=== PATIENT | female | born 1940 | race Caucasian/White ===

== ENCOUNTER 2017-09-30 21:40 | Outpatient (CLI) | payer MEDICARE | END 2017-09-30 21:41 | disposition critical access hospital (66) | LOC: EMS 21:40 | PROVIDERS: ATTEND Surgery | DX: R00.2 Palpitations (principal) | CPT/HCPCS: A0425; A0427 ==

== ENCOUNTER 2017-09-30 22:16 | Emergency (ER) | payer MEDICARE ==
[2017-09-30] MEDS ORDERED: SODIUM CHLORIDE 0.9% 1,000 ML IV ONE (22:32)
[2017-09-30] MEDS ORDERED: PROCAINAMIDE 1,000 MG in SODIUM CHLORIDE 0.9% 240 ML IV STA (22:32)
[2017-09-30 22:39] LABS: BASOPHILS # (AUTO) 0.1 10^3/uL (0.0-0.1); EOSINOPHILS # (AUTO) 0.3 10^3/uL (0.0-0.7); EOSINOPHILS % (AUTO) 4.3 %; HGB - HEMOGLOBIN 12.6 g/dL (12.0-16.0); LYMPHOCYTES # (AUTO) 2.4 10^3/uL (1.5-3.5); LYMPHOCYTES % (AUTO) 35.5 %; MEAN CORPUSCULAR HEMOGLOBIN 30.9 pg (27.0-31.0); MEAN CORPUSCULAR HGB CONC 33.6 g/dL (32.0-36.0); MEAN CORPUSCULAR VOLUME 91.8 fL (81.0-99.0); MEAN PLATELET VOLUME 7.2 fL (7.9-10.8); MONOCYTES # (AUTO) 0.5 10^3/uL (0.0-1.0); MONOCYTES % (AUTO) 7.3 %; NEUTROPHILS # (AUTO) 3.5 10^3/uL (1.5-6.6); NEUTROPHILS % (AUTO) 51.9 %; PLT - PLATELET COUNT 281 10^3/uL (130-450); RED BLOOD COUNT 4.09 10^6/uL (4.20-5.40); RED CELL DISTRIBUTION WIDTH 13.5 % (12.0-15.0); WHITE BLOOD COUNT 6.8 x10^3/uL (4.8-10.8)
[2017-09-30 22:51] LABS: ALBUMIN 4.1 g/dL (3.2-5.5); ALBUMIN/GLOBULIN RATIO 1.4 (1.0-2.2); BILIRUBIN,TOTAL 0.5 mg/dL (0.2-1.0); CALCIUM 9.3 mg/dL (8.5-10.3); CREATININE 0.8 mg/dL (0.4-1.0); MAGNESIUM 1.9 mg/dL (1.7-2.8); PHOSPHORUS 4.1 mg/dL (2.5-4.6); TOTAL PROTEIN 7.1 g/dL (6.7-8.2)
--- NOTE | 2017-09-30 23:02 | XRAY Preliminary Report ---
Exam: XR CHEST 1 VIEW X-RAY IMPRESSION: Normal single view chest. [facility] SITE ID: [id number]
--- NOTE | 2017-09-30 23:05 | XRAY Report ---
EXAM: CHEST RADIOGRAPHY EXAM DATE: 09/30/2017 10:45 PM. CLINICAL HISTORY: New onset atrial fibrillation. COMPARISON: None. TECHNIQUE: 1 view. FINDINGS: Lungs/Pleura: No focal opacities evident. No pleural effusion. No pneumothorax. Mediastinum: Within exam limitations, the cardiomediastinal contour is normal. Other: None. IMPRESSION: Normal single view chest. [facility] Referring Provider Line: [phone] SITE ID: [id number]
--- NOTE | 2017-10-01 00:03 | ED Physician Documentation ---
PD HPI CHEST PAIN - Stated complaint Stated Complaint: PALPITATIONS ON/OFF X 2 MONTHS - Chief complaint Chief Complaint: Cardiac - History obtained from History obtained from: Patient, Family - History of Present Illness Timing - onset: How many hours ago (2) Timing - onset during: Rest, Emotional event Timing - details: Abrupt onset, Still present Associated symptoms: Palpitations Similar symptoms before: Work up / diagnostics Recently seen: Not recently seen - Additional information Additional information: Patient is a 77 year old female presenting to the emergency department for palpitations. According to patient and patient had an emotionally upsetting conversation with her son. Patient developed palpitations that did not resolve. patient states that she does get intermittent palpitations but she has never been medicated for them. patient states that she had a few episodes this month. Review of Systems Constitutional: denies: Fever, Chills Eyes: reports: Reviewed and negative Ears: reports: Reviewed and negative Nose: reports: Reviewed and negative Throat: denies: Sore throat Cardiac: reports: Palpitations. denies: Chest pain / pressure, Pedal edema, Calf pain Respiratory: denies: Dyspnea, Cough, Wheezing GI: denies: Nausea, Vomiting : reports: Reviewed and negative Skin: denies: Rash, Lesions Musculoskeletal: denies: Extremity pain, Extremity swelling Neurologic: denies: Generalized weakness, Focal weakness, Numbness, Near syncope , Syncope, Headache Psychiatric: denies: Depressed, Suicidal Immunocompromised: denies: Immunocompromised PD PAST MEDICAL HISTORY - Past Medical History Past Medical History: Yes Cardiovascular: Other Other Past Medical History: RBB - Past Surgical History Past Surgical History: Yes HEENT: Cataracts - Present Medications Home Medications: Ambulatory Orders Medication Instructions Recorded Confirmed Estrogens, Conjugated [Premarin] 1 tab PO DAILY 09/30/17 09/30/17 - Allergies Allergies/Adverse Reactions: Allergies Allergy/AdvReac Type Severity Reaction Status Date / Time No Known Drug Allergies Allergy Verified 09/30/17 22:31 - Social History Does the pt smoke?: No Smoking Status: Never smoker Does the pt drink ETOH?: Yes ETOH Use: Wine Does the pt have substance abuse?: No - Immunizations Immunizations are current?: Yes - POLST Patient has POLST: No PD ED PE NORMAL - Vitals Vital signs reviewed: Yes - General General: Alert and oriented X 3, Well developed/nourished - HEENT HEENT: Atraumatic, PERRL - Neck Neck: Supple, no meningeal sign, No JVD - Respiratory Respiratory: No respiratory distress, Clear bilaterally - Abdomen Abdomen: Soft, Non tender, Non distended - Derm Derm: Normal color, Warm and dry, No rash - Extremities Extremities: No deformity, No edema, No calf tenderness / cord - Neuro Neuro: Alert and oriented X 3, No motor deficit, No sensory deficit, Normal speech Eye Opening: Spontaneous Motor: Obeys Commands Verbal: Oriented GCS Score: 15 PD ED PE EXPANDED - General General: Alert, Anxious - HEENT HEENT: Dry mucous membranes - Cardiac Cardiac: Tachy, Irregularly irregular Results - Vitals Vitals: Vital Signs - 24 hr 09/30/17 09/30/17 09/30/17 22:20 22:45 22:59 Temperature 35.9 C L Heart Rate 126 H 109 H 113 H Respiratory 17 10 L 18 Rate Blood Pressure 164/91 H 156/80 H 141/97 H O2 Saturation 97 96 98 09/30/17 09/30/17 10/01/17 23:22 23:45 00:07 Temperature 36.0 C L Heart Rate 130 H 84 85 Respiratory 23 17 17 Rate Blood Pressure 144/101 H 135/97 H 135/88 H O2 Saturation 97 97 97 Oxygen O2 Source Room air Oxygen Flow Rate 2 - EKG (time done) 2222 Rate: Rate (enter#) (110) Rhythm: Atrial fibrillation Intervals: RBBB Ischemia: Normal ST segments Compare to prior EKG: Old EKG unavailable Computer interpretation: Disagree with computer 2258 Rate: Rate (enter#) (108) Rhythm: Atrial fibrillation Intervals: RBBB Other comments: Other comments (posterior ekg, no signs of acute ischemia) Compare to prior EKG: Unchanged from prior EKG 2356 Rate: Rate (enter#) (83) Rhythm: NSR [place]: Normal Intervals: RBBB QRS: Normal Ischemia: Normal ST segments Compare to prior EKG: Changed from prior EKG - Labs Labs: Laboratory Tests 09/30/17 09/30/17 09/30/17 22:33 22:33 22:33 WBC 6.8 RBC 4.09 L Hgb 12.6 Hct 37.5 MCV 91.8 MCH 30.9 MCHC 33.6 RDW 13.5 Plt Count 281 MPV 7.2 L Neut # 3.5 Lymph # 2.4 [place] # 0.5 Eos # 0.3 Baso # 0.1 Absolute Nucleated RBC 0.00 Nucleated RBC % 0.1 Sodium 137 Potassium 3.4 L Chloride 102 Carbon Dioxide 25 Anion Gap 10.0 BUN 18 Creatinine 0.8 Estimated GFR (MDRD) 70 L Glucose 120 H Calcium 9.3 Phosphorus 4.1 Magnesium 1.9 Total Bilirubin 0.5 AST 29 ALT 27 Alkaline Phosphatase 44 Troponin I < 0.04 B-Natriuretic Peptide Total Protein 7.1 Albumin 4.1 Globulin 3.0 Albumin/Globulin Ratio 1.4 Lipase 28 TSH 09/30/17 09/30/17 22:33 22:33 WBC RBC Hgb Hct MCV MCH MCHC RDW Plt Count MPV Neut # Lymph # [place] # Eos # Baso # Absolute Nucleated RBC Nucleated RBC % Sodium Potassium Chloride Carbon Dioxide Anion Gap BUN Creatinine Estimated GFR (MDRD) Glucose Calcium Phosphorus Magnesium Total Bilirubin AST ALT Alkaline Phosphatase Troponin I B-Natriuretic Peptide 104 H Total Protein Albumin Globulin Albumin/Globulin Ratio Lipase TSH 1.28 - Rads (name of study) chest x-ray Radiology: Final report received (normal ) PD MEDICAL DECISION MAKING - ED course Complexity details: reviewed old records, reviewed results, re-evaluated patient , considered differential, d/w patient, d/w family ED course: Patient was seen and examined at bedside. ekg was performed and showed a fib. patient was placed on a monitor. IV access was gained and labs were drawn. The computer read the ekg as a posterior CT but was not convincing. posterior ekg was performed and showed no ischemic changes. Due to patient's history of possible intermittent Afib, a decision was made to try to chemically cardiovert as opposed to electrocardioversion. Patient was stared on a fluid bolus and then treated with 1gm of procainamide over 1 hour. Patient converted into normal sinus rhythm. Patient's other diagnostics were within normal limits. and patient required no further work up at this time. Patient was stable for discharge with outpatient follow up. Departure - Departure Disposition: 01 Home, Self Care Clinical Impression: Atrial fibrillation Condition: Good Instructions: Atrial Fibrillation Dc Follow-Up: Luz Maria Aviles ARNP [Primary Care Provider] - Within 3 Days Comments: Your symptoms today were caused by a fib which has resolved. Since you have had recurrent episodes you should follow up with your doctor for an echocardiogram and holter monitor. You should avoid stimulants. You may return to the emergency department at any time for new, worsening or uncontrollable symptoms. Discharge Date/Time: 10/01/17 00:15
[2017-10-01 00:08] VITALS: BP 135/88
== END 2017-10-01 00:15 | disposition home or self-care (01) ==
LOC: EDUNIT# → ED 22:16
DX: I48.91 Unspecified atrial fibrillation (principal); I45.10 Unspecified right bundle-branch block
CPT/HCPCS: 36415; 71045; 80053; 83690; 83735; 83880; 84100; 84443; 84484; 85025; 93005; 96365; 99284; 99285; J2690

== ENCOUNTER 2017-10-31 12:37 | Outpatient (CLI) | payer MEDICARE | END 2017-10-31 12:38 | disposition home or self-care (01) | LOC: DI 12:37 | PROVIDERS: ATTEND Registered Nurse | DX: I48.0 Paroxysmal atrial fibrillation (principal); I51.7 Cardiomegaly | CPT/HCPCS: 93306 ==

== ENCOUNTER 2018-04-11 19:10 | Emergency (ER) | payer MEDICARE ==
[2018-04-11 19:53] LABS: BASOPHILS # (AUTO) 0.1 10^3/uL (0.0-0.1); BASOPHILS % (AUTO) 1.2 %; EOSINOPHILS # (AUTO) 0.1 10^3/uL (0.0-0.7); EOSINOPHILS % (AUTO) 1.1 %; HGB - HEMOGLOBIN 12.8 g/dL (12.0-16.0); LYMPHOCYTES # (AUTO) 2.3 10^3/uL (1.5-3.5); MEAN CORPUSCULAR HEMOGLOBIN 32.6 pg (27.0-31.0); MEAN CORPUSCULAR HGB CONC 34.9 g/dL (32.0-36.0); MEAN CORPUSCULAR VOLUME 93.4 fL (81.0-99.0); MEAN PLATELET VOLUME 7.9 fL (7.9-10.8); MONOCYTES # (AUTO) 0.4 10^3/uL (0.0-1.0); MONOCYTES % (AUTO) 5.9 %; NEUTROPHILS # (AUTO) 4.6 10^3/uL (1.5-6.6); NEUTROPHILS % (AUTO) 60.8 %; PLT - PLATELET COUNT 268 10^3/uL (130-450); RED BLOOD COUNT 3.94 10^6/uL (4.20-5.40); RED CELL DISTRIBUTION WIDTH 14.1 % (12.0-15.0); WHITE BLOOD COUNT 7.5 x10^3/uL (4.8-10.8)
[2018-04-11 20:06] LABS: ALBUMIN 3.9 g/dL (3.2-5.5); ALBUMIN/GLOBULIN RATIO 1.4 (1.0-2.2); BILIRUBIN,TOTAL 0.4 mg/dL (0.2-1.0); CALCIUM 9.1 mg/dL (8.5-10.3); CREATININE 0.8 mg/dL (0.4-1.0); TOTAL PROTEIN 6.7 g/dL (6.7-8.2)
--- NOTE | 2018-04-11 20:19 | XRAY Report ---
Reason: soa Procedure Date: 04/11/2018 Accession Number: [id number] / [id number] Procedure: XR - Chest 1 View X-Ray CPT Code: 86787 FULL RESULT: EXAM: CHEST RADIOGRAPHY EXAM DATE: 04/11/2018 07:59 PM. CLINICAL HISTORY: Shortness of breath COMPARISON: CHEST 1 VIEW 09/30/2017 10:36 PM. TECHNIQUE: 1 view. FINDINGS: Lungs/Pleura: Hypoventilatory changes at the lung bases. There are small bilateral pleural effusions. No pulmonary edema. No lobar consolidation or pneumothorax. Mediastinum: Within exam limitations, the cardiomediastinal contour is normal. Other: None. IMPRESSION: Trace bilateral pleural effusions. No pulmonary edema or focal consolidation. [facility]
[2018-04-11] MEDS ORDERED: LORazepam 2 MG/ML VIAL IVP STA (20:48)
[2018-04-11] MEDS ORDERED: SODIUM CHLORIDE 0.9% 1,000 ML IV ONE (20:48)
[2018-04-11] MEDS ORDERED: diltiaZEM INJ 5 MG/ML VIAL IVP STA (20:48)
--- NOTE | 2018-04-11 22:34 | ED Physician Documentation ---
History of Present Illness - Stated complaint Stated Complaint: SOA - Chief complaint Chief Complaint: Cardiac - History obtained from History obtained from: Patient, Family - History of Present Illness Timing: Yesterday - Additonal information Additional information: Patient is a 78 year old female recently diagnosed with A fib who is presenting to the emergency department for not feeling well. Patient states that she did bowel prep on friday for colonoscopy on . Patient reports that on friday she started eliquis and atenolol for her a fib. Patient states that she had some nausea and an episode of vomiting. Patient states that she came in today because she generally was not feeling well and thought it might be the medications. Review of Systems Constitutional: denies: Fever, Chills Cardiac: denies: Chest pain / pressure, Pedal edema Respiratory: denies: Dyspnea, Cough GI: reports: Nausea, Vomiting, Diarrhea. denies: Abdominal Pain : denies: Dysuria, Frequency Skin: denies: Rash, Lesions Neurologic: reports: Generalized weakness. denies: Focal weakness, Numbness, Altered mental status, LOC PD PAST MEDICAL HISTORY - Past Medical History Cardiovascular: Atrial fibrillation, Other Other Past Medical History: cervical cancer - Past Surgical History Past Surgical History: Yes HEENT: Cataracts - Present Medications Home Medications: Ambulatory Orders Medication Instructions Recorded Confirmed Estrogens, Conjugated [Premarin] 1 tab PO DAILY 09/30/17 09/30/17 diltiaZEM CD [Cardizem Cd] 180 mg PO DAILY #14 capsule 04/11/18 - Allergies Allergies/Adverse Reactions: Allergies Allergy/AdvReac Type Severity Reaction Status Date / Time No Known Drug Allergies Allergy Verified 09/30/17 22:31 - Social History Does the pt smoke?: No Smoking Status: Never smoker Does the pt drink ETOH?: Yes Does the pt have substance abuse?: No - Immunizations Immunizations are current?: Yes - POLST Patient has POLST: No PD ED PE NORMAL - Vitals Vital signs reviewed: Yes - General General: Alert and oriented X 3 - HEENT HEENT: Atraumatic - Neck Neck: Supple, no meningeal sign - Respiratory Respiratory: No respiratory distress - Abdomen Abdomen: Soft - Derm Derm: Normal color, Warm and dry - Extremities Extremities: No deformity - Neuro Neuro: Alert and oriented X 3, No motor deficit, Normal speech Eye Opening: Spontaneous Motor: Obeys Commands Verbal: Oriented GCS Score: 15 PD ED PE EXPANDED - Cardiac Cardiac: Tachy, Irregularly irregular Results - Vitals Vitals: Vital Signs - 24 hr 04/11/18 04/11/18 04/11/18 19:21 20:07 20:30 Temperature 36.3 C L Heart Rate 110 H 105 H 107 H Respiratory 18 13 16 Rate Blood Pressure 129/93 H 138/101 H 127/99 H O2 Saturation 97 94 94 04/11/18 04/11/18 21:00 21:45 Temperature Heart Rate 111 H 88 Respiratory 16 14 Rate Blood Pressure 145/107 H 131/86 H O2 Saturation 94 95 Oxygen O2 Source Nasal cannula - EKG (time done) 1933 Rate: Rate (enter#) (120) Rhythm: Atrial fibrillation Intervals: RBBB QRS: Normal Ischemia: Normal ST segments - Labs Labs: Laboratory Tests 04/11/18 04/11/18 04/11/18 19:47 19:47 19:47 WBC 7.5 RBC 3.94 L Hgb 12.8 Hct 36.8 L MCV 93.4 MCH 32.6 H MCHC 34.9 RDW 14.1 Plt Count 268 MPV 7.9 Neut # (Auto) 4.6 Lymph # (Auto) 2.3 [place] # (Auto) 0.4 Eos # (Auto) 0.1 Baso # (Auto) 0.1 Absolute Nucleated RBC 0.00 Nucleated RBC % 0.1 Sodium 133 L Potassium 3.9 Chloride 99 L Carbon Dioxide 26 Anion Gap 8.0 BUN 22 H Creatinine 0.8 Estimated GFR (MDRD) 70 L Glucose 129 H Calcium 9.1 Total Bilirubin 0.4 AST 238 H ALT 251 H Alkaline Phosphatase 113 Troponin I < 0.04 Total Protein 6.7 Albumin 3.9 Globulin 2.8 Albumin/Globulin Ratio 1.4 Lipase 38 - Rads (name of study) chest x-ray Radiology: Final report received (trace pleural effusion) PD MEDICAL DECISION MAKING - ED course Complexity details: reviewed old records, reviewed results, re-evaluated patient, considered differential, d/w patient, d/w family ED course: Patient was seen and examined at bedside. ekg was performed and showed a fib at 120. Iv access was gained and labs were drawn. patient was started on a fluid bolus, a dose of cardizem 10mg and ativan. Patient's heart rate improved as did her symptoms. Patient had a mild transaminitis but was otherwise feeling well. patient wanted to try the calcium channel malik instead of the beta malik. patient was prescribed cardizem and stable for discharge with outpatient follow up. - Sepsis Event Vital Signs: Vital Signs - 24 hr 04/11/18 04/11/18 04/11/18 19:21 20:07 20:30 Temperature 36.3 C L Heart Rate 110 H 105 H 107 H Respiratory 18 13 16 Rate Blood Pressure 129/93 H 138/101 H 127/99 H O2 Saturation 97 94 94 04/11/18 04/11/18 21:00 21:45 Temperature Heart Rate 111 H 88 Respiratory 16 14 Rate Blood Pressure 145/107 H 131/86 H O2 Saturation 94 95 Oxygen O2 Source Nasal cannula Departure - Departure Disposition: 01 Home, Self Care Clinical Impression: Atrial fibrillation Condition: Good Instructions: Atrial Fibrillation Dc Follow-Up: Luz Maria Aviles, [employer] [Primary Care Provider] - Prescriptions: diltiaZEM CD [Cardizem Cd] 180 mg PO DAILY #14 capsule Comments: You are being started on cardizem today instead of the beta malik to see how you feel. It is important that you stay well hydrated and get plenty of rest over the next few days. You have only been given a two week supply so you will need to schedule a follow up appointment with your doctor. You may return to the emergency department at any time for new, worsening or uncontrollable symptoms.
[2018-04-11 22:56] VITALS: BP 133/88
== END 2018-04-11 22:56 | disposition home or self-care (01) ==
LOC: ED 19:10
DX: I48.91 Unspecified atrial fibrillation (principal); I45.10 Unspecified right bundle-branch block; R74.8 Abnormal levels of other serum enzymes; Z79.01 Long term (current) use of anticoagulants
CPT/HCPCS: 36415; 71045; 80053; 83690; 84484; 85025; 93005; 96361; 96374; 96375; 99284; J2060